=== PATIENT | male | born 1945 ===

== ENCOUNTER → 2019-12-26 11:53 | Outpatient (BNVA) | payer MEDICARE, SELFPAY | PROVIDERS: PCP Internal Medicine; Referring Provider Internal Medicine; Visit Provider Internal Medicine Cardiovascular Disease | DX: I48.19 Other persistent atrial fibrillation (principal); R06.02 Shortness of breath; I11.0 Hypertensive heart disease with heart failure; I50.9 Heart failure, unspecified; E66.9 Obesity, unspecified; Z68.43 Body mass index [BMI] 50.0-59.9, adult; G47.33 Obstructive sleep apnea (adult) (pediatric) | CPT/HCPCS: 93005; 99202 ==

== ENCOUNTER → 2020-05-25 13:21 | Outpatient (BNVA) | payer MEDICARE, SELFPAY | PROVIDERS: PCP Internal Medicine; Visit Provider Internal Medicine Cardiovascular Disease ==

== ENCOUNTER 2020-05-25 13:28 | Emergency (ER) | payer MEDICARE, MEDICAID, SELFPAY ==
--- NOTE | ~2020-05-25 | XR_ITS ---
EXAMINATION: LEFT HAND AND WRIST X-RAY CLINICAL INFORMATION: Pain post injury COMPARISON: None TECHNIQUE: 2 views of the left hand were performed. Exam is limited due to patient positioning. FINDINGS: Evaluation of the thumb is limited due to patient positioning. There is question of a nondisplaced ulnar styloid fracture. No other fracture is seen. Joint spaces are normal. Soft tissues are normal. XR/XR hand wrist LT IMPRESSION: Limited exam. Question nondisplaced fracture of the ulnar styloid.
--- NOTE | ~2020-05-25 | XR_ITS ---
EXAMINATION: XR HAND, LEFT CLINICAL INFORMATION: Question of underlying fracture COMPARISON: Radiographs earlier today TECHNIQUE: PA, lateral, and oblique views of the left hand. FINDINGS: Since the study earlier this afternoon there has been no interval change. On the current exam, I see no evidence of fracture ulnar styloid. XR/XR hand LT 2V IMPRESSION: I do not see a fracture of the ulnar styloid.
[2020-05-25 13:57] VITALS: BP 134/79; PULSE 59; RESP 18; TEMP 36.6; O2SAT 99; BMI 24.5
[2020-05-25 17:14] VITALS: RESP 16
[2020-05-25] MEDS: oxyCODONE HCl Immed Release 5 MG TABLET PO (17:50)
--- NOTE | 2020-05-25 19:12 | ED.EXTPRO ---
HPI - Extremity Problem General Chief complaint: Extremity Problem Stated complaint: Hand pain Time Seen by Provider: 05/25/20 14:25 Source: EMS Mode of arrival: EMS Limitations: no limitations History of Present Illness HPI Narrative: 75-year-old male presenting complaint of left hand pain he has a history of a CVA currently and Rehab states at month ago he had a CVA with left him with left-sided residual weakness and during the CVA event he fell onto the hand and has been having pain since. States the pain was reaggravated after his medical staff at the shelter attempted to help him and assist him out of bed. Pain is in the left hand. He was here for routine cardiology appointment outpatient basis and asked the EMS to bring him to emergency room for evaluation of the left hand. He otherwise denies any other complaints, specifically no chest pain, shortness of breath, recent illness, fever, shoulder pain or any other recent fall or injury. MD Complaint: extremity pain Onset (ago): month(s) (A month) Pain Consistency: intermittent Location: left Radiation: none Relieving factors: nothing Exacerbating factors: nothing Associated symptoms: denies other symptoms Related Data Home Medications Medication Instructions Recorded Confirmed amlodipine 10 mg tablet 10 mg PO DAILY 12/26/19 atenolol 100 mg tablet 100 mg PO DAILY 12/26/19 atorvastatin 40 mg tablet mg PO 12/26/19 cholecalciferol (vitamin D3) 25 25 mcg PO DAILY 12/26/19 mcg (1,000 unit) capsule fluoxetine 20 mg capsule 20 mg PO DAILY 12/26/19 furosemide 20 mg tablet 20 mg PO DAILY 12/26/19 mirtazapine 15 mg tablet 15 mg PO BEDTIME 12/26/19 omeprazole 20 mg capsule,delayed 20 mg PO DAILY 12/26/19 release Previous Rx's Medication Instructions Recorded rivaroxaban 20 mg tablet 20 mg PO QPM 30 Days #30 tab 12/26/19 Allergies Allergy/AdvReac Type Severity Reaction Status Date / Time No Known Allergies Allergy Verified 05/25/20 14:29 Review of Systems Review of Systems: Constitutional: No Weight loss, No Fever, No Chills, No Night Sweats, No Fatigue, No Malaise ENT/Mouth: No Hearing loss, No Ear Pain, No Nasal Congestion, No Sinus Pain, No Hoarseness, No sore throat, No Rhinorrhea, No Swallowing Difficulty Eyes: No Eye Pain, No Swelling, No Redness, No Foreign Body, No Discharge, No Vision Changes Cardiovascular: No Chest Pain, No SOB, No Dyspnea on Exertion, No Orthopnea, No Edema, No Palpitations Respiratory: No Cough, No Sputum, No Wheezing, No Smoke Exposure, No Dyspnea Gastrointestinal: No Nausea, No Vomiting, No Diarrhea, No Constipation, No abdominal Pain, No Hematochezia, No Melena Genitourinary: No Dysuria, No Urinary Frequency, No Hematuria, No Urinary Incontinence, No Urgency, No Flank Pain, No Urinary Flow Changes, No Hesitancy Musculoskeletal: No joint pain, No Myalgias, No Joint Swelling, hand pain is 0 per HPI Skin: No Skin Lesions, No rash Neuro: No Weakness, No Numbness, No Paresthesias, No Loss of Consciousness, No Dizziness, No Headache Psych: No Anxiety/Panic, No Depression, No SI/HI/AH/VH, No Social Issues Heme/Lymph: No Bruising, No Bleeding,No Lymphadenopathy Endocrine: No Polyuria, No Polydipsia, No Temperature Intolerance Yes all other systems are reviewed and are negative [facility] Past Medical History Medical History HTN (hypertension) Left atrial enlargement Obesity BETSY (obstructive sleep apnea) Persistent atrial fibrillation Social History Social History Alcohol intake: unknown Smoking Status: Former smoker Use of substances other than those prescribed or required for medical reasons: No Advance Directives: No Advance Directives Information Provided: Yes Physical Exam Vital Signs: Vital Signs: Last Vital Signs Temp 97.9 F 05/25/20 13:57 Pulse 59 05/25/20 13:57 Resp 16 05/25/20 17:14 BP 134/79 05/25/20 13:57 Pulse Ox 99 05/25/20 13:57 Body Mass Index 24.5 Reviewed Const: General: cooperative; No acute distress or intoxicated appearing Nutritional Appearance: average body habitus Orientation/consciousness: patient oriented x3 HENMT: Head: Yes normal to inspection Ears: hearing grossly normal bilaterally Eyes: General: appearance normal, both eyes and all related structures Visual Dominguez: normal visual dominguez by confrontation Neck: Neck: Yes normal visual inspection, No positive Brudzinski's sign, No positive Kernig's sign and No tender Thyroid: Thyroid normal Chest: Chest palpation & inspection: normal inspection of the chest Resp: Effort & Inspection: normal respiratory effort Auscultation: clear to auscultation bilaterally Cardio: Jugular venous distension: no JVD Rhythm: regular rhythm Heart sounds: S1 normal heart sound present and S2 normal heart sound present GI: Inspection: Yes normal to inspection Palpation (GI): Soft to palpation Percussion: Yes normal to percussion Auscultation: normal bowel sounds : General: Yes no CVA tenderness Back/Spine/Pelvis: Back: no CVA tenderness Skin: General skin exam: no rashes or lesions noted Neuro: Other: Baseline left-sided hemiparesis General: patient oriented x3 Extrem: Other: Points at the mid wrist/hand area as area of pain when he is touched. Otherwise no erythema, pulse is within normal limits. No obvious deformity or injury. General: Yes normal to inspection Course Course Course Narrative: Contusion versus strain type injury x-ray repeated given poor position without evidence of acute fracture. Will send back to the shelter with [facility] wrap. He is participating in PT. Discharge Plan Discharge Clinical Impression: Hand pain, left Patient Disposition: Xfer SNF Prescriptions: No Action furosemide 20 mg tablet 20 mg PO DAILY RF: 0 amlodipine 10 mg tablet 10 mg PO DAILY RF: 0 fluoxetine 20 mg capsule 20 mg PO DAILY RF: 0 mirtazapine 15 mg tablet 15 mg PO BEDTIME RF: 0 atorvastatin 40 mg tablet PO RF: 0 atenolol 100 mg tablet 100 mg PO DAILY RF: 0 omeprazole 20 mg capsule,delayed release(DR/EC) 20 mg PO DAILY RF: 0 cholecalciferol (vitamin D3) 25 mcg (1,000 unit) capsule 25 mcg PO DAILY RF: 0 Xarelto 20 mg tablet 20 mg PO QPM 30 Days Qty: 30 RF: 5
--- NOTE | 2020-05-25 19:52 | PC.NURSE ---
report given to fadumo glynn. no questions.
[2020-05-25 20:00] VITALS: BP 163/80; PULSE 80; RESP 18; TEMP 36.7; O2SAT 94
== END 2020-05-25 20:36 | disposition skilled nursing facility (03) ==
PROVIDERS: Emergency Provider Internal Medicine; PCP Internal Medicine
DX: M79.642 Pain in left hand (principal); I10 Essential (primary) hypertension; I48.19 Other persistent atrial fibrillation; Z86.73 Personal history of transient ischemic attack (TIA), and cerebral infarction without residual deficits
CPT/HCPCS: 73110; 73120; 73130; 99283; 99284

== ENCOUNTER 2022-11-28 08:20 | Outpatient (AMB) | payer MEDICARE, MEDICAID, SELFPAY ==
--- NOTE | 2022-11-28 08:50 | MHC.PC.OV ---
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 Transferring care from unknown . Medical records have not been requested and have not received. Belt Builder Required: Yes Belt Builder Language: Yi Information Interpreted: non-clinical & clinical Packaging Line Operator: Present Accompanied by: staff Allergies No Known Allergies Allergy (Verified 11/28/22 08:51) Tobacco use date assessed: 11/28/22 Fall risk assessment: No Falls in past year Last assessed Fall Risk: 11/28/22 Dental Screening Dental Screen Date: 11/28/22 Did you have a dental visit in the last 12 months?: No Did you have a dental problem in the last 6 months where you did not have access to dental care?: No Was dental information given to patient?: No HPI HPI Comments History of Present Illness Details 72-year-old male past history significant for hypertension, BETSY, persistent atrial fibrillation, heart failure, prostate cancer, right MCA ischemic stroke. Patient presents today as a new patient with [facility]. Patient presents today with training program developer Tremaine. dba manager from [facility] requesting referral to reestablish care with Neurology, for history of seizures and history of right MCA stroke, cardiology for history of atrial fibrillation and heart failure, podiatry referral for foot exam, gastroenterology for ongoing right quadrant abdominal pain. And requesting order for new sleep study. Reports patient does use his CPAP for greater than 4 hours nightly with good effect. Patient recently moved to [facility] in [place] from long-term in [place]. Requesting refills on all of his medications be sent to [facility]. Patient fidel lift to wheelchair. [facility] currently [facility] at [facility]. Patient's doctor assistant was utilized for assessment portion of this exam. Patient reports 3 months of pain with urination, urinalysis ordered to further evaluate. [facility] Medical History (Updated 11/28/22 @ 09:43 by ZENOBIA Mohr) Abdominal pain History of stroke Prostate cancer BETSY (obstructive sleep apnea) Obesity HTN (hypertension) Left atrial enlargement Persistent atrial fibrillation Social History Housing: House Alcohol intake: never Patient Tobacco Use Status: Never used Tobacco e-Cigarette/Vaping Use: Never Used Second Hand Smoke Exposure: No service: No Current occupational status: disabled Cognitive needs: Yes (Wheelchair) Hearing needs: No Vision needs: Yes (glasses) Questionnaire PHQ-9 Over the last 2 weeks, how often have you been bothered by any of the following problems? 1. Little interest or pleasure in doing things: not at all 2. Feeling down, depressed, or hopeless: not at all 3. Trouble falling or staying asleep, or sleeping too much: not at all 4. Feeling tired or having little energy: not at all 5. Poor appetite or overeating: not at all 6. Feeling bad about yourself - or that you are a failure or have let yourself or your family down: not at all 7. Trouble concentrating on things, such as reading the newspaper or watching television: not at all 8. Moving or speaking so slowly that other people could have noticed. Or the opposite - being so fidgety or restless that you have been moving around a lot more than usual: not at all 9. Thoughts that you would be better off or of hurting yourself in some way: not at all Total score: 0 Depression Screening Interpretation: Negative Depression Screening Done: Yes Source: Developed by Drs. Sammy Orozco, Jerri Holman, Lee Ruggiero and colleagues, with an educational allison from [employer]. Thrive Questionnaire Date Thrive assessed: 11/28/22 I am a: Patient What is your living situation today?: I have a steady place to live Within the past 12 months, did the food you bought not last and you didn't have the money to get more?: Never true Within the past 12 months, did you worry whether your food would run out before you got money to buy more?: Never true Do you have trouble paying for medicines?: No Do you have trouble getting transportation to medical appointments?: No Do you have trouble paying your heating and electricity bill?: No Do you have trouble taking care of your child, family member or friend?: No Do you have trouble with day-to-day activities such as bathing, preparing meals, shopping, managing finances, etc.?: No Are you currently unemployed and looking for a job?: No Are you interested in more education?: No Currently or been in a relationship where the following occur: no concerns reported AUDIT C Alcohol Use Questionnaire (AUDIT-C) 1. How often do you have a drink containing alcohol?: Never Total Score: 0 JUMA-7 AMB Questionnaire JUMA-7 Date JUMA - 7 assessed: 11/28/22 Feeling nervous, anxious, or on edge: 0 = Not at all Not being able to stop or control worryin = Not at all Worrying too much about different things: 0 = Not at all Trouble relaxin = Not at all Being so restless that it is hard to sit still: 0 = Not at all Becoming easily annoyed or irritable: 0 = Not at all Feeling afraid as if something awful might happen: 0 = Not at all Total JUMA-7 score (0-4 normal; 5-9 mild; 10-14 moderate; 15-21 severe): 0 Source: Developed by Drs. Sammy Orozco, Jerri Holman, Lee Ruggiero and colleagues, with an educational allison from [employer]. Review of Systems Const Denies chills, Denies fatigue, Denies fever(s) and Denies poor appetite Eyes Denies no additional complaints ENT Reports Normal hearing present Card Denies chest pain, Denies syncope, Denies rapid heart rate and Denies dyspnea Resp Denies cough and Denies dyspnea GI Denies change in stool character, Denies constipation, Denies diarrhea, Denies nausea and Denies vomiting Denies dysuria, Denies urinary frequency and Denies urinary urgency Neuro Reports Normal hearing present, Denies confusion and Denies syncope Psych Denies confusion Endo Denies fatigue Physical exam (Primary Care) Vital Signs: Last Vital Signs Pulse 80 11/28/22 09:12 BP 124/86 11/28/22 09:12 Pulse Ox 96 11/28/22 09:12 Oxygen Delivery Method Room Air 11/28/22 09:12 Tobacco/Smoking Status: Tobacco use Status Tobacco use date assessed 11/28/22 11/28/22 08:56 Patient Tobacco Use Status Never used Tobacco 11/28/22 08:56 e-Cigarette/Vaping Use Never Used 11/28/22 08:56 PHQ-9: PHQ-9 Score PHQ-9: Total score 0 11/28/22 11:00 Depression Screening Interpretation: Negative Thrive Assessment: Date of Thrive Assessment Date Thrive assessed 11/28/22 11/28/22 08:56 Currently or been in a relationship where the following occur: no concerns reported Const General: No confusion Orientation/consciousness: No confusion Neuro General: No confusion Cranial nerves: Yes Normal hearing present Assessment and Plan Assessment & Plan (1) BETSY (obstructive sleep apnea): Code(s): G47.33 - Obstructive sleep apnea (adult) (pediatric) Plan: Sleep study ordered. Continue to use CPAP for greater than 4 hours a night with good effect. Referral entered neuro/sleep to establish care. (2) Persistent atrial fibrillation: Code(s): I48.19 - Other persistent atrial fibrillation Plan: Continue on Eliquis for anticoagulation. Referral entered to reestablish care with Cardiology (3) Heart failure: Code(s): I50.9 - Heart failure, unspecified Plan: Referral entered to reestablish care with Cardiology. (4) Seizure: Code(s): R56.9 - Unspecified convulsions Plan: Continue on current medications. Patient training program developer denies any seizure activity since [facility] to a [facility] Plan Follow-up in 3 months for complete physical exam Orders: Orders Comprehensive [facility]. Panel Fast Today Z13.1 - Encounter for screening for diabetes mellitus Complete Blood Count Auto Diff Today Z13.0 - Encounter for screening for diseases of the blood and blood-forming organs and certain disorders involving the immune mechanism UA CC w/rflx Micro + Cult Today R30.0 - Dysuria RT PSG in-lab sleep study Today G47.33 - Obstructive sleep apnea (adult) (pediatric) Lipid Panel Today Z13.220 - Encounter for screening for lipoid disorders TSH reflex Free T4 Today Z13.29 - Encounter for screening for other suspected endocrine disorder Hemoglobin A1c Today Z13.1 - Encounter for screening for diabetes mellitus Referrals Neurology Referral R56.9 - Unspecified convulsions Podiatry Referral Z00.00 - Encounter for general adult medical examination without abnormal findings Cardiology Referral I48.19 - Other persistent atrial fibrillation, I50.9 - Heart failure, unspecified Gastroenterology Referral R10.9 - Unspecified abdominal pain Medications: New atenolol 50 mg (1/2 x 100 mg) PO DAILY 30 tabs 3RF duloxetine (Cymbalta) 60 mg PO DAILY 30 caps 3RF furosemide 40 mg (2 x 20 mg) PO DAILY 30 tabs 3RF simethicone (Gas Relief (simethicone)) 80 mg PO TID PRN 90 tabs 2RF abdominal distention trazodone 50 mg PO BID 60 tabs 3RF trazodone 25 mg (1/2 x 50 mg) PO .every 8hr PRN 30 tabs 0RF sleep magnesium hydroxide (Milk Of Magnesia Concentrated) 30 mL PO DAILY PRN 1,000 mL 0RF constipation acetaminophen ER (Tylenol 8 Hour) 650 mg PO Q12H 30 tabs 3RF amlodipine (Norvasc) 5 mg PO DAILY 30 tabs 3RF apixaban 5 mg PO BID 60 tabs 3RF buspirone 10 mg PO BID 60 tabs 3RF cholecalciferol (vitamin D3) 25 mcg PO DAILY 30 caps 3RF duloxetine (Cymbalta) 30 mg PO DAILY 30 caps 3RF sennosides (senna) 17.2 mg (2 x 8.6 mg) PO BEDTIME 30 caps 3RF levetiracetam ER (Keppra XR) 1,000 mg (2 x 500 mg) PO DAILY 30 tabs 3RF R56.9 - Unspecified convulsions gabapentin 300 mg PO DAILY 30 caps 3RF gabapentin 100 mg PO BID 60 caps 3RF Changed From atorvastatin PO To atorvastatin 40 mg PO BEDTIME 30 tabs 3RF Discontinued rivaroxaban (Xarelto) must administer with evening meal Discontinued Reason: Patient no longer taking 20 mg PO QPM 30 days 30 tabs 5RF Coding Level of Care Code New Pt Level 4 (16109) Diagnoses BETSY (obstructive sleep apnea) G47.33 Persistent atrial fibrillation I48.19 Heart failure I50.9 Seizure R56.9
[2022-11-28 09:12] VITALS: BP 124/86; PULSE 80; O2SAT 96
== END 2022-11-28 09:42 | disposition home or self-care (01) ==
PROVIDERS: PCP Nurse Practitioner Family; Visit Provider Nurse Practitioner Family
DX: G47.33 Obstructive sleep apnea (adult) (pediatric) (principal); I48.19 Other persistent atrial fibrillation; I50.9 Heart failure, unspecified; R56.9 Unspecified convulsions
CPT/HCPCS: 99204

== ENCOUNTER 2022-12-09 10:29 | Outpatient (AMB) | payer MEDICARE, MEDICAID, SELFPAY ==
[2022-12-09 10:35] VITALS: BP 130/76; PULSE 65; O2SAT 96
--- NOTE | 2022-12-09 10:35 | MHC.PC.OV ---
Vital Signs 12/09/22 10:35 Height 5 ft 11 in BP 130/76 Blood Pressure Location Lt brachial Position Sitting Pulse 65 Pulse Source Pulse Oximeter Pulse Oximetry (%) 96 Oxygen Delivery Method Room Air Intake Visit Reasons: [facility] 12/02/22 Chest Pain Ear Mold Laboratory Technician: Present Allergies No Known Allergies Allergy (Verified 12/09/22 11:14) Medication List - Last Reconciled 12/09/22 by ZENOBIA Mohr acetaminophen ER (Tylenol 8 Hour) 650 mg PO Q12H amlodipine (Norvasc) 5 mg PO DAILY apixaban 5 mg PO BID atenolol 50 mg (1/2 x 100 mg) PO DAILY atorvastatin 40 mg PO BEDTIME buspirone 10 mg PO BID cholecalciferol (vitamin D3) 25 mcg PO DAILY duloxetine (Cymbalta) 60 mg PO DAILY duloxetine (Cymbalta) 30 mg PO DAILY furosemide 40 mg (2 x 20 mg) PO DAILY gabapentin 300 mg PO DAILY gabapentin 100 mg PO BID levetiracetam ER (Keppra XR) 1,000 mg (2 x 500 mg) PO DAILY magnesium hydroxide (Milk Of Magnesia Concentrated) 30 mL PO DAILY PRN sennosides (senna) 17.2 mg (2 x 8.6 mg) PO BEDTIME simethicone (Gas Relief (simethicone)) 80 mg PO TID PRN trazodone 50 mg PO BID trazodone 25 mg (1/2 x 50 mg) PO .every 8hr PRN Tobacco use date assessed: 11/28/22 Fall risk assessment: No Falls in past year Last assessed Fall Risk: 12/09/22 Dental Screening Dental Screen Date: 12/09/22 Did you have a dental visit in the last 12 months?: Yes Did you have a dental problem in the last 6 months where you did not have access to dental care?: No Was dental information given to patient?: Patient has dentist HPI HPI Comments History of Present Illness Details 72-year-old [place]-speaking male past history significant for hypertension, BETSY, persistent atrial fibrillation, heart failure, prostate cancer, right MCA ischemic stroke. Patient presents today with ER visit to [facility]. Records unavailable during this appointment. 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 intermediate staff report work up was negative and patient returned to the house. Patient denies any chest pain, palpitations, shortness of breath or syncope. Records have been requested. No acute concerns at this time. intermediate staff reminded to get previously ordered blood work completed. [facility] Medical History Abdominal pain History of stroke Prostate cancer BETSY (obstructive sleep apnea) Obesity HTN (hypertension) Left atrial enlargement Persistent atrial fibrillation Social History Housing: House Alcohol intake: never Patient Tobacco Use Status: Never used Tobacco e-Cigarette/Vaping Use: Never Used Second Hand Smoke Exposure: No service: No Current occupational status: disabled Cognitive needs: Yes (Wheelchair) Hearing needs: No Vision needs: Yes (glasses) Questionnaire PHQ-9 Over the last 2 weeks, how often have you been bothered by any of the following problems? 1. Little interest or pleasure in doing things: not at all 2. Feeling down, depressed, or hopeless: not at all 3. Trouble falling or staying asleep, or sleeping too much: not at all 4. Feeling tired or having little energy: not at all 5. Poor appetite or overeating: not at all 6. Feeling bad about yourself - or that you are a failure or have let yourself or your family down: not at all 7. Trouble concentrating on things, such as reading the newspaper or watching television: not at all 8. Moving or speaking so slowly that other people could have noticed. Or the opposite - being so fidgety or restless that you have been moving around a lot more than usual: not at all 9. Thoughts that you would be better off or of hurting yourself in some way: not at all Total score: 0 Source: Developed by Drs. Sammy Orozco, Jerri Hloman, Lee Ruggiero and colleagues, with an educational allison from [employer]. Thrive Questionnaire Date Thrive assessed: 11/28/22 AUDIT C Alcohol Use Questionnaire (AUDIT-C) 1. How often do you have a drink containing alcohol?: Never Total Score: 0 JUMA-7 AMB Questionnaire JUMA-7 Date JUMA - 7 assessed: 11/28/22 Source: Developed by Drs. Sammy Orozco, Jerri Holman, Lee Ruggiero and colleagues, with an educational allison from [employer]. Review of Systems Const Denies chills, Denies fatigue, Denies fever(s) and Denies poor appetite Eyes Denies no additional complaints Card Denies chest pain, Denies syncope, Denies rapid heart rate and Denies dyspnea Resp Denies cough and Denies dyspnea GI Denies change in stool character, Denies constipation, Denies diarrhea, Denies nausea and Denies vomiting Denies dysuria, Denies urinary frequency and Denies urinary urgency Neuro Denies syncope Endo Denies fatigue Physical exam (Primary Care) Vital Signs: Last Vital Signs Pulse 65 12/09/22 10:35 BP 130/76 12/09/22 10:35 Pulse Ox 96 12/09/22 10:35 Oxygen Delivery Method Room Air 12/09/22 10:35 Tobacco/Smoking Status: Tobacco use Status Tobacco use date assessed 11/28/22 12/09/22 10:37 Patient Tobacco Use Status Never used Tobacco 12/09/22 10:37 e-Cigarette/Vaping Use Never Used 12/09/22 10:37 PHQ-9: PHQ-9 Score PHQ-9: Total score 0 12/09/22 11:15 Thrive Assessment: Date of Thrive Assessment Date Thrive assessed 11/28/22 12/09/22 10:37 Const General: cooperative and no acute distress Orientation/consciousness: patient oriented x3 HENMT Head: Yes normocephalic and Yes atraumatic Eyes Conjunctivae: conjunctivae normal Chest Chest palpation & inspection: normal inspection of the chest Resp Effort & Inspection: normal respiratory effort Auscultation: clear to auscultation bilaterally, no crackles, no rhonchi and no wheezes Cardio Rate: regular rate Rhythm: regular rhythm Heart sounds: S1 normal heart sound present and S2 normal heart sound present GI Inspection: Yes normal to inspection Neuro General: patient oriented x3 Extrem General: No edema Assessment and Plan Assessment & Plan (1) HTN (hypertension): Code(s): I10 - Essential (primary) hypertension (2) BETSY (obstructive sleep apnea): Code(s): G47.33 - Obstructive sleep apnea (adult) (pediatric) Plan: Sleep study ordered. Continue to use CPAP for greater than 4 hours a night with good effect. Referral entered neuro/sleep to establish care. (3) Persistent atrial fibrillation: Code(s): I48.19 - Other persistent atrial fibrillation Plan: Continue on Eliquis for anticoagulation. Referral previously entered to reestablish care with Cardiology (4) Heart failure: Code(s): I50.9 - Heart failure, unspecified Plan: Referral previously entered to reestablish care with Cardiology. (5) Seizure: Code(s): R56.9 - Unspecified convulsions Plan: Continue on current medications. 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 Referral previously placed to neurology. Plan Keep scheduled annual exam. Coding Level of Care Code Est Pt Level 4 (21941) Diagnoses HTN (hypertension) I10 BETSY (obstructive sleep apnea) G47.33 Persistent atrial fibrillation I48.19 Heart failure I50.9 Seizure R56.9
== END 2022-12-09 11:22 | disposition home or self-care (01) ==
PROVIDERS: PCP Nurse Practitioner Family; Visit Provider Nurse Practitioner Family
DX: I11.0 Hypertensive heart disease with heart failure (principal); I50.9 Heart failure, unspecified; I48.19 Other persistent atrial fibrillation; R56.9 Unspecified convulsions
CPT/HCPCS: 99214

== ENCOUNTER 2022-12-12 09:26 | Outpatient (REF) | payer MEDICARE, MEDICAID, SELFPAY ==
[2022-12-12 10:07] LABS: MANUAL DIFF FLAG NO
[2022-12-12 10:49] LABS: Basophils Percent Auto 0.2 % (0-2); Eosinophils Absolute Auto 0.1 X10*3/uL (0.0-0.4); Eosinophils Percent Auto 1.2 % (0-4); Hematocrit 48.2 % (42.0-52.0); Imm Gran Abs Auto 0.01 X10*3/uL (0.00-0.03); Imm Gran Pct Auto 0.2 % (0.0-0.4); Lymphocytes Absolute Auto 0.6 X10*3/uL (1.2-4.9); Mean Corpuscular HGB Conc 33.2 g/dl (31.0-36.0); Mean Corpuscular Hemoglobin 32.8 pg (27.0-33.0); Mean Corpuscular Volume 98.8 fL (80.0-98.0); Mean Platelet Volume 10.6 fL (9.4-12.4); Monocytes Absolute Auto 0.4 X10*3/uL (0.1-1.2); Monocytes Percent Auto 8.4 % (2-11); Neutrophils Absolute Auto 3.2 x10*3/uL (2.0-8.3); Platelet Count 189 X10*3/uL (160-400); Red Blood Count 4.88 X10*6/uL (4.60-5.80); Red Cell Distribution Width 12.4 % (11.0-16.0); White Blood Count 4.3 X10*3/uL (4.8-10.8)
[2022-12-12 11:18] LABS: Estimated Average Glucose 105 mg/dL; Hemoglobin A1c % 5.3 % (<6.0)
[2022-12-12 11:24] LABS: Alanine Aminotransferase 39 U/L (0-40); Albumin Level 3.8 g/dL (3.5-5.0); Alkaline Phosphatase 100 U/L (39-117); Anion Gap 14 (12-20); Aspartate Amino Transferase 28 U/L (5-37); Bilirubin Total 0.8 mg/dL (0.0-1.0); Blood Urea Nitrogen 12 mg/dL (9-16); Calcium 9.3 mg/dL (8.4-10.2); Carbon Dioxide 31 mmol/L (22-29); Chloride 103 mmol/L (96-108); Cholesterol 157 mg/dL (<200); Estimated Glomerular Filt Rate > 60; Glucose Fasting 89 mg/dL (60-99); HDL Cholesterol 44 mg/dL (>40); LDL Cholesterol Calculated 90 mg/dL (<100); Potassium 3.6 mmol/L (3.3-5.1); Sodium 144 mmol/L (135-145); Total Protein 7.1 g/dL (6.5-8.0); Triglycerides 115 mg/dL (<150)
[2022-12-12 11:57] LABS: TSH reflex Free T4 0.52 uIU/mL (0.32-4.0)
== END 2022-12-12 09:27 | disposition home or self-care (01) ==
LOC: HO.LAB 09:26
PROVIDERS: PCP Nurse Practitioner Family; Visit Provider Nurse Practitioner Family
DX: R30.0 Dysuria (principal); Z13.1 Encounter for screening for diabetes mellitus; Z13.0 Encounter for screening for diseases of the blood and blood-forming organs and certain disorders involving the immune mechanism; Z13.29 Encounter for screening for other suspected endocrine disorder; Z13.220 Encounter for screening for lipoid disorders; E78.5 Hyperlipidemia, unspecified; E66.9 Obesity, unspecified
CPT/HCPCS: 36415; 80053; 80061; 83036; 84443; 85025

== ENCOUNTER → 2023-01-04 01:31 | Outpatient (BNV) | payer MEDICARE, MEDICAID, SELFPAY | PROVIDERS: PCP Nurse Practitioner Family; Visit Provider Psychiatry & Neurology Neurology | DX: R06.83 Snoring (principal) | CPT/HCPCS: 95810 ==

== ENCOUNTER → 2023-01-04 19:30 | Outpatient (REF) | payer MEDICARE, MEDICAID, SELFPAY | LOC: HO.SL 19:30 | PROVIDERS: PCP Nurse Practitioner Family; Visit Provider Nurse Practitioner Family | DX: G47.33 Obstructive sleep apnea (adult) (pediatric) (principal) | CPT/HCPCS: 95810 ==

== ENCOUNTER 2023-02-08 10:20 | Outpatient (AMB) | payer MEDICARE, MEDICAID, SELFPAY ==
--- NOTE | 2023-02-08 10:21 | A.OFFVIS_ITS ---
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 Allergies No Known Allergies Allergy (Verified 02/08/23 10:22) HPI HPI Comments History of Present Illness Details 78 y/o male patient presents with Shelter staff for new in-person visit to establish care for seizure. Pt is not a good historian. Pt can't give information about hx of seizure. The Shelter staff also does not know about patient's seizure history. Pt is on Keppra ER 1000 mg daily and gabapentin 300 mg TID. Per Shelter staff, he has worked with the patient about 6 months, and has not seen any seizure activities. Pt has hx of BETSY, persistent atrial fibrillation, heart failure, prostate cancer, right MCA ischemic stroke. Pt had PSG sleep study done recently. The PSG sleep study result was significant for mild snoring. There was no evidence of sleep apnea. The AHI was less than 1 and oxygen sherif was 71%. However, per tech note, there was oximeter error. The oximeter had to be replaced several times due to patient circulation in his hands. Probe was tried in both hands and also his toes. [facility] Medical History (Updated 02/08/23 @ 10:37 by Lory Lawson CMA) Lipoma of arm Abdominal pain History of stroke Prostate cancer BETSY (obstructive sleep apnea) Obesity HTN (hypertension) Left atrial enlargement Persistent atrial fibrillation Social History Housing: House Alcohol intake: never Patient Tobacco Use Status: Never used Tobacco e-Cigarette/Vaping Use: Never Used Second Hand Smoke Exposure: No service: No Current occupational status: disabled Cognitive needs: Yes (Wheelchair) Hearing needs: No Vision needs: Yes (glasses) Review of Systems Const All systems reviewed & are unremarkable except as noted in HPI and below Physical Exam Const General: cooperative Nutritional Appearance: obese Limitations: wheelchair Neck Neck: Yes supple Resp Effort & Inspection: normal respiratory effort and able to speak in complete sentences Neuro Other: limited left arm movement. No left leg movement. General: Unable to assess gait Cranial nerves: Yes CN's II-XII intact bilaterally Cognition (Neuro): normal cognition Gait exam (Neuro): Unable to assess gait Psych Appearance: grossly normal Mental Status: mental status grossly normal Assessment & Plan Assessment & Plan (1) Seizure: Code(s): R56.9 - Unspecified convulsions Plan Advised patient to have EEG for baseline information. Continue to take keppra 1000 mg ER daily and gabapentin 300 mg TID. Orders: Orders EEG ambulatory 02/08/23 R56.9 - Unspecified convulsions Coding Level of Care Code New Pt Level 3 (63402) Diagnoses Seizure R56.9
== END 2023-02-08 11:49 | disposition home or self-care (01) ==
PROVIDERS: PCP Nurse Practitioner Family; Visit Provider Nurse Practitioner Family
DX: R56.9 Unspecified convulsions (principal)
CPT/HCPCS: 99203

== ENCOUNTER → 2023-02-08 10:20 | Outpatient (BNVA) | payer MEDICARE, MEDICAID, SELFPAY | PROVIDERS: PCP Nurse Practitioner Family; Visit Provider Nurse Practitioner Family | DX: R56.9 Unspecified convulsions (principal) | CPT/HCPCS: 99202 ==

== ENCOUNTER 2023-02-27 14:56 | Outpatient (AMB) | payer MEDICARE, MEDICAID, SELFPAY ==
--- NOTE | 2023-02-27 15:01 | A.OFFPC_ITS ---
Vital Signs 02/27/23 15:04 Height 5 ft 11 in BMI Reason not done Patient refused/unable BP 132/70 Blood Pressure Location Rt brachial Position Sitting Pulse 64 Pulse Source Pulse Oximeter Pulse Oximetry (%) 94 Oxygen Delivery Method Room Air Intake Visit Reasons: ED [facility] 02/02 fall Intake Note: Patient is here to follow-up after a visit the emergency department at [facility] on 02/02/23 Traveling Auditor Required: Yes Traveling Auditor Language: Dumpman Name: Maurilio ([id number]) Information Interpreted: non-clinical & clinical Spray Mixer: Not Required per policy Accompanied by: Self / Same As Patient Allergies No Known Allergies Allergy (Verified 02/27/23 17:18) Medication List - Last Reconciled 02/27/23 by Joe Segura MD acetaminophen ER (Tylenol 8 Hour) 650 mg PO Q12H amlodipine (Norvasc) 5 mg PO DAILY apixaban 5 mg PO BID atenolol 50 mg (1/2 x 100 mg) PO DAILY atorvastatin 40 mg PO BEDTIME buspirone 10 mg PO BID cholecalciferol (vitamin D3) 25 mcg PO DAILY duloxetine (Cymbalta) 60 mg PO DAILY duloxetine (Cymbalta) 30 mg PO DAILY furosemide 40 mg (2 x 20 mg) PO DAILY gabapentin 300 mg PO TID levetiracetam ER (Keppra XR) 1,000 mg (2 x 500 mg) PO DAILY magnesium hydroxide (Milk Of Magnesia Concentrated) 30 mL PO DAILY PRN polyethylene glycol 3350 (Miralax) 17 grams PO DAILY sennosides (senna) 17.2 mg (2 x 8.6 mg) PO BEDTIME simethicone (Gas Relief (simethicone)) 80 mg PO TID PRN trazodone 50 mg PO BID trazodone 25 mg (1/2 x 50 mg) PO .every 8hr PRN Tobacco use date assessed: 02/27/23 Fall risk assessment: 1 Fall in past year Last assessed Fall Risk: 02/27/23 Dental Screening Dental Screen Date: 02/27/23 Did you have a dental visit in the last 12 months?: Yes Did you have a dental problem in the last 6 months where you did not have access to dental care?: No Was dental information given to patient?: Patient has dentist HPI ED [facility] 02/02 fall HPI Details 78-year-old male presents to the office to review his medical complaints. He will be transferring to my care as his primary provider has left the office. Patient is wheelchair bound and comes from a intermediate. He is dependent for transfer and all care. He is able to eat independently. However he is incontinent to urine and feces. He also needs complete assistance in moving from the chair to the bed. He has obstructive sleep apnea and is on CPAP. [facility] Medical History (Updated 02/08/23 @ 10:37 by Lory Lawson CMA) Lipoma of arm Abdominal pain History of stroke Prostate cancer BETSY (obstructive sleep apnea) Obesity HTN (hypertension) Left atrial enlargement Persistent atrial fibrillation Surgical History (Updated 02/27/23 @ 15:11 by ÓSCAR Christopher) History of dental surgery Social History Housing: House Alcohol intake: never Patient Tobacco Use Status: Never used Tobacco e-Cigarette/Vaping Use: Never Used Second Hand Smoke Exposure: No service: No Current occupational status: disabled Cognitive needs: Yes (Wheelchair) Hearing needs: No Vision needs: Yes (glasses) Questionnaire PHQ-9 Over the last 2 weeks, how often have you been bothered by any of the following problems? 1. Little interest or pleasure in doing things: not at all 2. Feeling down, depressed, or hopeless: not at all 3. Trouble falling or staying asleep, or sleeping too much: not at all 4. Feeling tired or having little energy: not at all 5. Poor appetite or overeating: not at all 6. Feeling bad about yourself - or that you are a failure or have let yourself or your family down: not at all 7. Trouble concentrating on things, such as reading the newspaper or watching television: not at all 8. Moving or speaking so slowly that other people could have noticed. Or the opposite - being so fidgety or restless that you have been moving around a lot more than usual: not at all 9. Thoughts that you would be better off or of hurting yourself in some way: not at all Total score: 0 Depression Screening Interpretation: Negative Depression Screening Done: Yes Source: Developed by Jeremias Bellamyet [employer], Lee Ruggiero and colleagues, with an educational allison from [employer]. Thrive Questionnaire Date Thrive assessed: 02/27/23 I am a: Patient What is your living situation today?: I have a steady place to live Within the past 12 months, did the food you bought not last and you didn't have the money to get more?: Never true Within the past 12 months, did you worry whether your food would run out before you got money to buy more?: Never true Do you have trouble paying for medicines?: No Do you have trouble getting transportation to medical appointments?: No Do you have trouble paying your heating and electricity bill?: No Do you have trouble taking care of your child, family member or friend?: No Do you have trouble with day-to-day activities such as bathing, preparing meals, shopping, managing finances, etc.?: No Are you currently unemployed and looking for a job?: No Are you interested in more education?: No Currently or been in a relationship where the following occur: no concerns reported AUDIT C Alcohol Use Questionnaire (AUDIT-C) 1. How often do you have a drink containing alcohol?: Never Total Score: 0 JUMA-7 AMB Questionnaire JUMA-7 Date JUMA - 7 assessed: 02/27/23 Feeling nervous, anxious, or on edge: 0 = Not at all Not being able to stop or control worryin = Not at all Worrying too much about different things: 0 = Not at all Trouble relaxin = Not at all Being so restless that it is hard to sit still: 0 = Not at all Becoming easily annoyed or irritable: 0 = Not at all Feeling afraid as if something awful might happen: 0 = Not at all Total JUMA-7 score (0-4 normal; 5-9 mild; 10-14 moderate; 15-21 severe): 0 Source: Developed by Drs. Sammy Orozco, Jerri Holman, Lee Ruggiero and colleagues, with an educational allison from [employer]. Physical exam (Primary Care) Vital Signs: Last Vital Signs Pulse 64 02/27/23 15:04 BP 132/70 02/27/23 15:04 Pulse Ox 94 02/27/23 15:04 Oxygen Delivery Method Room Air 02/27/23 15:04 Tobacco/Smoking Status: Tobacco use Status Tobacco use date assessed 02/27/23 02/27/23 15:08 Patient Tobacco Use Status Never used Tobacco 02/27/23 15:08 e-Cigarette/Vaping Use Never Used 02/27/23 15:08 PHQ-9: PHQ-9 Score PHQ-9: Total score 0 02/27/23 15:08 Depression Screening Interpretation: Negative Thrive Assessment: Date of Thrive Assessment Date Thrive assessed 02/27/23 02/27/23 15:08 Currently or been in a relationship where the following occur: no concerns reported Const Other: Prefers to be silent and does not answer any questions. According to the intermediatesalesperson trailers and motor homes, this is his baseline state. Resp Effort & Inspection: normal respiratory effort Auscultation: clear to auscultation bilaterally Cardio Jugular venous distension: no JVD Palpation: normal PMI Rate: regular rate Rhythm: regular rhythm Heart sounds: S1 normal heart sound present and S2 normal heart sound present Assessment and Plan Assessment & Plan (1) Seizure: Code(s): R56.9 - Unspecified convulsions Plan: Lamictal prescription was called in. Other medications reviewed. Medications: Refilled levetiracetam ER (Keppra XR) 1,000 mg (2 x 500 mg) PO DAILY 30 tabs 3RF R56.9 - Unspecified convulsions Coding Level of Care Code Est Pt Level 3 (69816) Diagnoses Seizure R56.9
[2023-02-27 15:04] VITALS: BP 132/70; PULSE 64; O2SAT 94
== END 2023-02-27 15:45 | disposition home or self-care (01) ==
PROVIDERS: PCP Nurse Practitioner Family; Visit Provider Internal Medicine
DX: R56.9 Unspecified convulsions (principal)
CPT/HCPCS: 99213

== ENCOUNTER 2023-04-26 09:19 | Outpatient (AMB) | payer MEDICARE, MEDICAID, SELFPAY ==
--- NOTE | 2023-04-26 09:21 | MHC.PC.OV ---
Vital Signs 04/26/23 09:23 Height 5 ft 11 in BMI Reason not done Patient refused/unable BP 144/68 H Blood Pressure Location Rt brachial Position Sitting Pulse 88 Pulse Source Pulse Oximeter Temp Source Skin Pulse Oximetry (%) 97 Oxygen Delivery Method Room Air Intake Visit Reasons: [facility] 04/14 - 04/17 Intake Note: Patient is here for hospital discharge follow up. Patient was discharged from [facility] on 04/14-04/17 Allergies No Known Allergies Allergy (Verified 04/26/23 09:23) Medication List - Last Reconciled 04/26/23 by DM Peter acetaminophen (Tylenol) 650 mg (2 x 325 mg) PO BID-QID PRN amlodipine (Norvasc) 5 mg PO DAILY apixaban 5 mg PO BID atenolol 50 mg (1/2 x 100 mg) PO DAILY atorvastatin 40 mg PO BEDTIME buspirone 10 mg PO BID cholecalciferol (vitamin D3) 25 mcg PO DAILY cholecalciferol (vitamin D3) 25 mcg PO DAILY dapagliflozin propanediol 10 mg PO QAM dextromethorphan-guaifenesin 5-100 mg/5 mL (Robitussin Cough-Chest Congestion DM) 10 mL PO Q4-8H PRN duloxetine (Cymbalta) 60 mg PO BID furosemide 40 mg (2 x 20 mg) PO DAILY gabapentin 300 mg PO TID levetiracetam ER (Keppra XR) 1,000 mg (2 x 500 mg) PO DAILY loperamide 2 mg PO Q8H PRN 7 days magnesium hydroxide (Milk Of Magnesia Concentrated) 30 mL PO DAILY PRN polyethylene glycol 3350 (Miralax) 17 grams PO DAILY sacubitril-valsartan 24-26 mg (Entresto) 1 tab PO BID sennosides (senna) 17.2 mg (2 x 8.6 mg) PO BEDTIME simethicone (Gas Relief (simethicone)) 80 mg PO TIDWMEAL trazodone 25 mg (1/2 x 50 mg) PO .every 8hr PRN trazodone 50 mg PO BID Tobacco use date assessed: 04/26/23 Fall risk assessment: No Falls in past year Last assessed Fall Risk: 04/26/23 HPI TCM TCM Information Date of Discharge 04/17/23 Discharged From Other ([facility]) Interactive Contact Date (Reference documentation from this date) 04/26/23 HPI Comments History of Present Illness Details 78-year-old male with history of hypertension, hyperlipidemia, CKD stage 3, paroxysmal atrial fibrillation, heart failure with reduced ejection fraction, BETSY on CPAP, 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 Discharge medications have been reviewed and reconciled. The patient was admitted to [facility] from 04/14-04/17 due to acute hypercarbic respiratory failure on BiPAP with mild respiratory acidosis. PH 7.29, pCO2 70, bicarbonate 33. Renal function and electrolyte levels normal. He was also noted to be encephalopathic secondary to hypercapnia. He was treated with BiPAP with return to baseline mentation. He was continued on CPAP nightly. The reason he presented to the ED was due to left hip pain. X-ray of the left hip was without fracture but did show discrete focal lesions with differential to include renal osteodystrophy, metastatic disease, hematology disorders such as sickle cell disease. Patient was discharged back to retirement. manager agency reports RN at [facility] is recommending pt be seen by specialists for chronic medical conditions including neurology, pulmonology, sleep medicine, and cardiology. Danish interpretor Rajiv, [id number], used in discussion with pt. He is reporting he woke up with a sore throat this morning that is no longer present. Reports a chronic cough but no change in quality or severity. No fevers, chills, congestion, abd pain, n/v, sob, chest pain. No one sick at retirement per staff. Reports compliance with cpap. [facility] Medical History (Updated 04/27/23 @ 17:02 by DM Peter) Chronic hypercapnic respiratory failure Cognitive impairment Seizure Lipoma of arm Abdominal pain History of stroke Prostate cancer BETSY (obstructive sleep apnea) Obesity HTN (hypertension) Left atrial enlargement Persistent atrial fibrillation Surgical History (Updated 02/27/23 @ 15:11 by ÓSCAR Christopher) History of dental surgery Social History Housing: House Alcohol intake: never Patient Tobacco Use Status: Never used Tobacco e-Cigarette/Vaping Use: Never Used Second Hand Smoke Exposure: No service: No Current occupational status: disabled Cognitive needs: Yes (Wheelchair) Hearing needs: No Vision needs: Yes (glasses) Questionnaire Thrive Questionnaire Date Thrive assessed: 02/27/23 AUDIT C Alcohol Use Questionnaire (AUDIT-C) 1. How often do you have a drink containing alcohol?: Never 3. How often do you have six or more drinks on one occasion?: Never Total Score: 0 JUMA-7 AMB Questionnaire JUMA-7 Date JUMA - 7 assessed: 04/26/23 Source: Developed by Drs. Sammy Orozco, Jerri Holman, Lee Ruggiero and colleagues, with an educational allison from [employer]. Review of Systems Const All systems reviewed & are unremarkable except as noted in HPI and below Physical exam (Primary Care) Vital Signs: Last Vital Signs Pulse 88 04/26/23 09:23 BP 144/68 H 04/26/23 09:23 Pulse Ox 97 04/26/23 09:23 Oxygen Delivery Method Room Air 04/26/23 09:23 Tobacco/Smoking Status: Tobacco use Status Tobacco use date assessed 04/26/23 04/26/23 09:33 Patient Tobacco Use Status Never used Tobacco 04/26/23 09:21 e-Cigarette/Vaping Use Never Used 04/26/23 09:21 Thrive Assessment: Date of Thrive Assessment Date Thrive assessed 02/27/23 04/26/23 09:21 Const Other: Constitutional - Awake and Alert, No apparent distress Eyes - PERRL Nose/sinus- no sinus ttp Mouth/throat - no erythema/exudate, no tonsillar edema, uvula midline Cardiovascular - S1S2, RRR, No edema Respiratory - Normal lung expansion, Normal respiratory effort, No respiratory distress, CTA bilaterally Skin - Warm/Dry Results Reviewed Results Reviewed: cbc, bmp, vbg, xr L hip, discharge summary Assessment and Plan Assessment & Plan (1) Obesity hypoventilation syndrome: Code(s): E66.2 - Morbid (severe) obesity with alveolar hypoventilation Plan: Weight loss effort encouraged. Complicating chrnic hypercapneic respiratory failure. Referral to pulmonology placed as requested by retirement staff (2) Chronic hypercapnic respiratory failure: Code(s): J96.12 - Chronic respiratory failure with hypercapnia Plan: . wiht mild respiratory acidosis, resolved with bipap therapy. Continue with cpap nightly, weight loss efforts to help with obesity hypoventilation. Mentation baseline in office today. Referral to pulmonology placed as requested by retirement staff (3) Cognitive impairment: Code(s): R41.89 - Other symptoms and signs involving cognitive functions and awareness Plan: Referral placed to neurology for further management of cognitive impairment and seizure disorder as requested by retirement staff. (4) Sore throat: Code(s): J02.9 - Acute pharyngitis, unspecified Plan: Occurring in mornings and then resolving. Likely related to cpap use. Recommend salt water gargles and hydration. Can also discuss with cpap supplier. Low suspicion for infectious etiology. 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 Given history of prostate cancer, bone scan ordered to evaluate for metastatic lesions. Follow up with urology as scheduled. Orders: Referrals Neurology Referral G47.33 - Obstructive sleep apnea (adult) (pediatric), R41.89 - Other symptoms and signs involving cognitive functions and awareness, R56.9 - Unspecified convulsions Cardiology Referral I48.19 - Other persistent atrial fibrillation, I50.9 - Heart failure, unspecified Pulmonology Referral E66.2 - Morbid (severe) obesity with alveolar hypoventilation, G47.33 - Obstructive sleep apnea (adult) (pediatric), J96.12 - Chronic respiratory failure with hypercapnia Medications: New cholecalciferol (vitamin D3) 25 mcg PO DAILY 30 tabs 2RF dapagliflozin propanediol 10 mg PO QAM 30 tabs 2RF sacubitril-valsartan 24-26 mg (Entresto) 1 tab PO BID 60 tabs 2RF Changed From duloxetine (Cymbalta) 60 mg PO DAILY 30 caps 3RF To duloxetine (Cymbalta) 60 mg PO BID 60 caps 3RF From simethicone (Gas Relief (simethicone)) 80 mg PO TID PRN 90 tabs 2RF abdominal distention To simethicone (Gas Relief (simethicone)) 80 mg PO TIDWMEAL 90 tabs 2RF From acetaminophen (Tylenol) 325 mg PO .Qd PRN 30 tabs 0RF pain To acetaminophen (Tylenol) 650 mg (2 x 325 mg) PO BID-QID PRN 30 tabs 0RF pain Discontinued duloxetine (Cymbalta) Discontinued Reason: Doctor's Order 30 mg PO DAILY 30 caps 3RF acetaminophen ER (Tylenol 8 Hour) Discontinued Reason: Doctor's Order 650 mg PO Q12H 30 tabs 3RF Coding Level of Care Code Est Pt Level 5 (67907) Diagnoses Obesity hypoventilation syndrome E66.2 Chronic hypercapnic respiratory failure J96.12 Cognitive impairment R41.89 Sore throat J02.9 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
[2023-04-26 09:23] VITALS: BP 144/68; PULSE 88; O2SAT 97
== END 2023-04-26 11:25 | disposition home or self-care (01) ==
PROVIDERS: PCP Internal Medicine; Visit Provider Physician Assistant
DX: J96.12 Chronic respiratory failure with hypercapnia (principal); E66.2 Morbid (severe) obesity with alveolar hypoventilation; R41.89 Other symptoms and signs involving cognitive functions and awareness; J02.9 Acute pharyngitis, unspecified; M89.9 Disorder of bone, unspecified
CPT/HCPCS: 99215

== ENCOUNTER 2023-05-02 14:00 | Outpatient (AMB) | payer MEDICARE, MEDICAID, SELFPAY ==
--- NOTE | 2023-05-02 14:05 | A.OFFPC_ITS ---
Vital Signs 05/02/23 14:08 Height 5 ft 11 in BMI Reason not done Patient refused/unable BP 110/82 Blood Pressure Location Lt brachial Position Sitting Pulse 70 Pulse Source Pulse Oximeter Pulse Oximetry (%) 97 Oxygen Delivery Method Room Air Intake Visit Reasons: Ed follow up Intake Note: Patient is here to follow-up after a visit the emergency department at [facility] on 04/16/23. Stage Settings Painter Required: Yes Stage Settings Painter Language: Slovak Dental Laboratory Technician Apprentice: Present Accompanied by: staff Allergies No Known Allergies Allergy (Verified 05/02/23 15:00) Medication List - Last Reconciled 05/02/23 by Joe Segura MD acetaminophen (Tylenol) 650 mg (2 x 325 mg) PO BID-QID PRN amlodipine (Norvasc) 5 mg PO DAILY apixaban 5 mg PO BID atenolol 50 mg (1/2 x 100 mg) PO DAILY atorvastatin 40 mg PO BEDTIME buspirone 10 mg PO BID cetirizine 10 mg PO DAILY cholecalciferol (vitamin D3) 25 mcg PO DAILY dapagliflozin propanediol 10 mg PO QAM dextromethorphan-guaifenesin 5-100 mg/5 mL (Robitussin Cough-Chest Congestion DM) 10 mL PO Q4-8H PRN duloxetine (Cymbalta) 60 mg PO BID furosemide 40 mg (2 x 20 mg) PO DAILY gabapentin 300 mg PO TID levetiracetam ER (Keppra XR) 1,000 mg (2 x 500 mg) PO DAILY loperamide 2 mg PO Q8H PRN 7 days magnesium hydroxide (Milk Of Magnesia Concentrated) 30 mL PO DAILY PRN polyethylene glycol 3350 (Miralax) 17 grams PO DAILY sacubitril-valsartan 24-26 mg (Entresto) 1 tab PO BID sennosides (senna) 17.2 mg (2 x 8.6 mg) PO BEDTIME simethicone (Gas Relief (simethicone)) 80 mg PO TIDWMEAL trazodone 25 mg (1/2 x 50 mg) PO .every 8hr PRN trazodone 50 mg PO BID Tobacco use date assessed: 04/26/23 Fall risk assessment: No Falls in past year Last assessed Fall Risk: 05/02/23 Dental Screening Did you have a dental visit in the last 12 months?: No HPI Ed follow up HPI Details 78-year-old male presents to the office to discuss his medical condition. Information was obtained through a fish and wildlife scientific aid. He comes to the office with an commercial property administrator from the [facility] facility who has some knowledge of his care. She is requesting that patient be given a prescription of loperamide. Patient was recently at [facility] for abdominal discomfort and confusion. Was found to have hypercarbia and treated accordingly. He has now come back to baseline health. He is wheelchair-bound. He has been wheelchair- bound for a year after his debilitating stroke. He is on anticoagulants for atrial fibrillation. Patient uses diapers and can not get himself to the bathroom. He needs full assistance. Today he has no specific complaints. The music assistant reports his diet continues to be poor. [facility] Medical History Chronic hypercapnic respiratory failure Cognitive impairment Seizure Lipoma of arm Abdominal pain History of stroke Prostate cancer BETSY (obstructive sleep apnea) Obesity HTN (hypertension) Left atrial enlargement Persistent atrial fibrillation Surgical History History of dental surgery Social History Housing: House Alcohol intake: never Patient Tobacco Use Status: Never used Tobacco e-Cigarette/Vaping Use: Never Used Second Hand Smoke Exposure: No service: No Current occupational status: disabled Cognitive needs: Yes (Wheelchair) Hearing needs: No Vision needs: Yes (glasses) Questionnaire Thrive Questionnaire Date Thrive assessed: 02/27/23 JUMA-7 AMB Questionnaire JUMA-7 Date JUMA - 7 assessed: 04/26/23 Source: Developed by Drs. Sammy Orozco, Jerri Holman, Lee Ruggiero and colleagues, with an educational allison from [employer]. Physical exam (Primary Care) Vital Signs: Last Vital Signs Pulse 70 05/02/23 14:08 BP 110/82 05/02/23 14:08 Pulse Ox 97 05/02/23 14:08 Oxygen Delivery Method Room Air 05/02/23 14:08 Care Plan Goal for BP management: Blood pressure is in range. Continue current medications. Tobacco/Smoking Status: Tobacco use Status Tobacco use date assessed 04/26/23 05/02/23 14:05 Patient Tobacco Use Status Never used Tobacco 05/02/23 14:05 e-Cigarette/Vaping Use Never Used 05/02/23 14:05 Thrive Assessment: Date of Thrive Assessment Date Thrive assessed 02/27/23 05/02/23 14:05 Const Other: Alert, oriented to time and place. Wheelchair-bound. Patient is speaking to the director of product marketing and answering questions appropriately. HENMT Head: Yes normal to inspection Eyes General: appearance normal, both eyes and all related structures Neck Neck: Yes normal visual inspection and Yes full ROM Chest Chest palpation & inspection: normal inspection of the chest and normal palpation of entire chest wall Resp Other: Baseline wheezing. Effort & Inspection: normal respiratory effort Cardio Jugular venous distension: no JVD GI Other: Pendulous abdomen: Bowel sounds not appreciated. No tenderness. Extrem Other: Thickened and nonpitting edema. Assessment and Plan Assessment & Plan (1) Seizure: Code(s): R56.9 - Unspecified convulsions Plan: Continue current medications. Patient has been seizure-free for a while. (2) Heart failure: Code(s): I50.9 - Heart failure, unspecified Plan: Entresto has been started in the emergency room. Continue the same. (3) Persistent atrial fibrillation: Code(s): I48.19 - Other persistent atrial fibrillation Plan: Continue oral anticoagulants. Coding Level of Care Code Est Pt Level 4 (23719) Diagnoses Seizure R56.9 Heart failure I50.9 Persistent atrial fibrillation I48.19
[2023-05-02 14:08] VITALS: BP 110/82; PULSE 70; O2SAT 97
== END 2023-05-02 14:47 | disposition home or self-care (01) ==
PROVIDERS: PCP Internal Medicine; Visit Provider Internal Medicine
DX: R56.9 Unspecified convulsions (principal); I50.9 Heart failure, unspecified; I48.19 Other persistent atrial fibrillation
CPT/HCPCS: 99214

== ENCOUNTER 2023-05-31 09:28 | Outpatient (AMB) | payer MEDICARE, MEDICAID, SELFPAY ==
--- NOTE | 2023-05-31 09:40 | A.OFFPC_ITS ---
Vital Signs 05/31/23 09:42 Height 5 ft 11 in BMI Reason not done Patient refused/unable BP 132/74 Blood Pressure Location Rt brachial Position Sitting Pulse 78 Pulse Source Pulse Oximeter Pulse Oximetry (%) 94 Oxygen Delivery Method Room Air Intake Visit Reasons: [facility] 05/06/23 Intake Note: Patient is here to follow-up after a visit the emergency department at [facility] on 05/06/23 Reliner Required: Yes Reliner Language: Yakut Information Interpreted: non-clinical & clinical Turn Out: Present Accompanied by: staff Allergies No Known Allergies Allergy (Verified 05/31/23 10:12) Medication List - Last Reconciled 05/31/23 by Joe Segura MD acetaminophen (Tylenol) 650 mg (2 x 325 mg) PO BID-QID PRN amlodipine (Norvasc) 5 mg PO DAILY apixaban 5 mg PO BID atenolol 50 mg (1/2 x 100 mg) PO DAILY atorvastatin 40 mg PO BEDTIME buspirone 10 mg PO BID cetirizine 10 mg PO DAILY cholecalciferol (vitamin D3) 25 mcg PO DAILY dapagliflozin propanediol 10 mg PO QAM dextromethorphan-guaifenesin 5-100 mg/5 mL (Robitussin Cough-Chest Congestion DM) 10 mL PO Q4-8H PRN duloxetine (Cymbalta) 60 mg PO BID furosemide 40 mg (2 x 20 mg) PO DAILY gabapentin 300 mg PO TID levetiracetam ER (Keppra XR) 1,000 mg (2 x 500 mg) PO DAILY loperamide 2 mg PO Q8H PRN 7 days magnesium hydroxide (Milk Of Magnesia Concentrated) 30 mL PO DAILY PRN polyethylene glycol 3350 (Miralax) 17 grams PO DAILY sacubitril-valsartan 24-26 mg (Entresto) 1 tab PO BID sennosides (senna) 17.2 mg (2 x 8.6 mg) PO BEDTIME simethicone (Gas Relief (simethicone)) 80 mg PO TIDWMEAL trazodone 25 mg (1/2 x 50 mg) PO .every 8hr PRN trazodone 50 mg PO BID Tobacco use date assessed: 05/31/23 Dental Screening Dental Screen Date: 02/27/23 HPI [facility] 05/06/23 HPI Details 78-year-old male presents to the office for a follow-up ER visit. Patient was sent to the emergency room after he was complaining of excessive pain in the back and neck. He was seen at [facility] ER. He was discharged back on lidocaine patches. Patient reports he is feeling a little better with the patches and would like a prescription of the same. He is immobilized and on the wheelchair. They use a hoist to lift him to his bed. He feels the discomfort at that point. Incontinent to urine and patient would like to have pull-ups rather than diapers. [facility] Medical History Chronic hypercapnic respiratory failure Cognitive impairment Seizure Lipoma of arm Abdominal pain History of stroke Prostate cancer BETSY (obstructive sleep apnea) Obesity HTN (hypertension) Left atrial enlargement Persistent atrial fibrillation Surgical History History of dental surgery Social History Housing: House Alcohol intake: never Patient Tobacco Use Status: Never used Tobacco e-Cigarette/Vaping Use: Never Used Second Hand Smoke Exposure: No service: No Current occupational status: disabled Cognitive needs: Yes (Wheelchair) Hearing needs: No Vision needs: Yes (glasses) Questionnaire Thrive Questionnaire Date Thrive assessed: 02/27/23 JUMA-7 AMB Questionnaire JUMA-7 Date JUMA - 7 assessed: 04/26/23 Source: Developed by Drs. Sammy Orozco, Jerri Holman, Lee Ruggiero and colleagues, with an educational allison from [employer]. Physical exam (Primary Care) Vital Signs: Last Vital Signs Pulse 78 05/31/23 09:42 BP 132/74 05/31/23 09:42 Pulse Ox 94 05/31/23 09:42 Oxygen Delivery Method Room Air 05/31/23 09:42 Tobacco/Smoking Status: Tobacco use Status Tobacco use date assessed 05/31/23 05/31/23 09:44 Patient Tobacco Use Status Never used Tobacco 05/31/23 09:44 e-Cigarette/Vaping Use Never Used 05/31/23 09:44 Thrive Assessment: Date of Thrive Assessment Date Thrive assessed 02/27/23 05/31/23 09:44 Const General: cooperative and healthy appearing Nutritional Appearance: well nourished Orientation/consciousness: patient oriented x3 Limitations: no limitations HENMT Head: Yes normal to inspection Eyes General: appearance normal, both eyes and all related structures Neck Neck: Yes normal visual inspection Chest Chest palpation & inspection: normal palpation of entire chest wall Resp Effort & Inspection: normal respiratory effort Neuro General: patient oriented x3 Assessment and Plan Assessment & Plan (1) Low back pain: Code(s): M54.50 - Low back pain, unspecified Plan: His symptoms are due to his overweight, his stroke which has left him immobilized, this with the constant use of a device to help him into bed. Lidocaine patches have been prescribed. Patient is not a candidate for pull ups as he can not void without assistance. Continue use of diapers. Coding Level of Care Code Est Pt Level 3 (47384) Diagnoses Low back pain M54.50
[2023-05-31 09:42] VITALS: BP 132/74; PULSE 78; O2SAT 94
== END 2023-05-31 10:06 | disposition home or self-care (01) ==
PROVIDERS: PCP Internal Medicine; Visit Provider Internal Medicine
DX: M54.50 Low back pain, unspecified (principal)
CPT/HCPCS: 99213

== ENCOUNTER 2023-06-21 13:53 | Outpatient (AMB) | payer MEDICARE, MEDICAID, SELFPAY ==
[2023-06-21 13:57] VITALS: BP 128/78; PULSE 85; O2SAT 96
--- NOTE | 2023-06-21 13:57 | A.OFFVIS_ITS ---
Vital Signs 06/21/23 13:57 Height 5 ft 11 in BP 128/78 Blood Pressure Location Rt brachial Position Sitting Pulse 85 Pulse Source Doppler Pulse Oximetry (%) 96 Oxygen Delivery Method Room Air Intake Visit Reasons: Obstructive sleep apnea Allergies No Known Allergies Allergy (Verified 06/21/23 14:00) HPI HPI Obstructive sleep apnea: Details: 78-year-old gentleman with underlying BETSY/ohs on CPAP with recent admission to [facility] for acute hypercapnic respiratory failure requiring BiPAP support, now presents to establish care. Patient is currently on diuretic Lasix 20 mg daily with reasonable control of his underlying lower extremity edema. He denies prior personal family history of lung disease. [facility] Medical History Chronic hypercapnic respiratory failure Cognitive impairment Seizure Lipoma of arm Abdominal pain History of stroke Prostate cancer BETSY (obstructive sleep apnea) Obesity HTN (hypertension) Left atrial enlargement Persistent atrial fibrillation Surgical History History of dental surgery Social History Housing: House Alcohol intake: never Patient Tobacco Use Status: Never used Tobacco e-Cigarette/Vaping Use: Never Used Second Hand Smoke Exposure: No service: No Current occupational status: disabled Cognitive needs: Yes (Wheelchair) Hearing needs: No Vision needs: Yes (glasses) Review of Systems Const Denies daytime sleepiness, Denies excessive sweating, Denies fatigue, Denies fever(s), Denies lethargy, Denies malaise, Denies night sweats, Denies snoring and Denies weight loss Eyes Denies blurry vision and Denies itchy eyes ENT Denies nasal congestion, Denies post nasal drip, Denies sinus pain, Denies sinus pressure and Denies other ( Thrush) Card Denies chest pain, Reports pedal edema, Denies dyspnea, Denies orthopnea and Denies paroxysmal nocturnal dyspnea Resp Denies cough, Denies hemoptysis, Denies excessive phlegm production, Denies dysp nicole, Denies snoring and Denies wheezing GI Denies abdominal pain and Denies heartburn Musc Denies myalgias, Denies arthralgias and Denies joint swelling Skin/Breast Denies rash Psych Denies abnormal sleep pattern and Denies anxiety Endo Denies excessive sweating, Denies fatigue and Denies heat intolerance Silas/Lymph Denies easy bruising Aller/Immun Denies itchy eyes, Denies seasonal rhinorrhea and Denies wheezing Physical Exam Vital Signs: Last Vital Signs Pulse 85 06/21/23 13:57 BP 128/78 06/21/23 13:57 Pulse Ox 96 06/21/23 13:57 Oxygen Delivery Method Room Air 06/21/23 13:57 Const General: no acute distress and alert Nutritional Appearance: not obese Orientation/consciousness: Other orientation findings ( oriented) HEENT Head: Yes atraumatic Eyes General: appearance normal, both eyes and all related structures Sclerae: sclerae normal EOM: EOMs intact bilaterally Neck Neck: Yes supple Lymphatic: no lymphadenopathy noted Resp Effort & Inspection: normal respiratory effort and no use of accessory muscles Auscultation: clear to auscultation bilaterally Cardio Rate: regular rate Rhythm: regular rhythm Heart sounds: no gallops, no murmurs and no rubs Skin General skin exam: other ( warm) Extrem General: No clubbing, No cyanosis and Yes edema (2+ bilateral) Assessment & Plan Assessment & Plan (1) Obesity hypoventilation syndrome: Code(s): E66.2 - Morbid (severe) obesity with alveolar hypoventilation Category: Medical (2) BETSY (obstructive sleep apnea): Code(s): G47.33 - Obstructive sleep apnea (adult) (pediatric) Category: Medical (3) Chronic hypercapnic respiratory failure: Code(s): J96.12 - Chronic respiratory failure with hypercapnia Category: Medical Plan Obstructive sleep apnea with obesity hypoventilation and chronic hypercapnic respiratory failure suboptimally controlled on CPAP. Will likely require [employer] to BiPAP or AVAPS. Will request titration study. Orders: Orders RT PSG in-lab sleep titration Today E66.2 - Morbid (severe) obesity with alveolar hypoventilation, G47.33 - Obstructive sleep apnea (adult) (pediatric), J96.12 - Chronic respiratory failure with hypercapnia Coding Level of Care Code New Pt Level 4 (44652) Diagnoses Obesity hypoventilation syndrome E66.2 BETSY (obstructive sleep apnea) G47.33 Chronic hypercapnic respiratory failure J96.12
== END 2023-06-21 15:06 | disposition home or self-care (01) ==
PROVIDERS: PCP Internal Medicine; Visit Provider Internal Medicine Pulmonary Disease
DX: G47.33 Obstructive sleep apnea (adult) (pediatric) (principal); J96.12 Chronic respiratory failure with hypercapnia
CPT/HCPCS: 99204

== ENCOUNTER → 2023-06-21 13:53 | Outpatient (BNVA) | payer MEDICARE, MEDICAID, SELFPAY | PROVIDERS: PCP Internal Medicine; Visit Provider Internal Medicine Pulmonary Disease | DX: G47.33 Obstructive sleep apnea (adult) (pediatric) (principal); J96.12 Chronic respiratory failure with hypercapnia; R60.0 Localized edema; E66.2 Morbid (severe) obesity with alveolar hypoventilation; Z99.89 Dependence on other enabling machines and devices; Z79.899 Other long term (current) drug therapy | CPT/HCPCS: 99202 ==

== ENCOUNTER 2023-06-28 14:40 | Outpatient (AMB) | payer MEDICARE, MEDICAID, SELFPAY ==
--- NOTE | 2023-06-28 14:46 | A.OFFPC_ITS ---
Vital Signs 06/28/23 14:48 Height 5 ft 11 in BP 120/66 Blood Pressure Location Rt brachial Position Sitting Pulse 32 L Pulse Source Pulse Oximeter Pulse Oximetry (%) 92 Oxygen Delivery Method Room Air Intake Visit Reasons: ED follow up chest pain Intake Note: Patient is here to follow-up after a visit the emergency department at [facility] on 06/26/23 Carpenters Required: Yes Carpenters Language: Turkish Information Interpreted: non-clinical & clinical Sprayer Leather: Present Accompanied by: staff Allergies No Known Allergies Allergy (Verified 07/02/23 15:32) Tobacco use date assessed: 06/28/23 Fall risk assessment: No Falls in past year Last assessed Fall Risk: 06/28/23 Dental Screening Dental Screen Date: 02/27/23 HPI ED follow up chest pain HPI Details 78 year old male presents to the office after recent discharge from the ER. Pt was in [facility] ER after he complained difficulty of swallowing. Pt was evaluated and reassured. Sx resolved and is now able to swallow and eat without difficulty. He is disabled and wheelchair bound. He needs assistance with feeding and all ADL's FORMERLY [facility], [facility] Medical History Chronic hypercapnic respiratory failure Cognitive impairment Seizure Lipoma of arm Abdominal pain History of stroke Prostate cancer BETSY (obstructive sleep apnea) Obesity HTN (hypertension) Left atrial enlargement Persistent atrial fibrillation Surgical History History of dental surgery Social History Housing: House Alcohol intake: never Patient Tobacco Use Status: Never used Tobacco e-Cigarette/Vaping Use: Never Used Second Hand Smoke Exposure: No service: No Current occupational status: disabled Cognitive needs: Yes (Wheelchair) Hearing needs: No Vision needs: Yes (glasses) Questionnaire Thrive Questionnaire Date Thrive assessed: 02/27/23 JUMA-7 AMB Questionnaire JUMA-7 Date JUMA - 7 assessed: 04/26/23 Source: Developed by Drs. Sammy Orozco, Jerri Holman, Lee Ruggiero and colleagues, with an educational allison from [employer]. Physical exam (Primary Care) Vital Signs: Last Vital Signs Pulse 32 L 06/28/23 14:48 BP 120/66 06/28/23 14:48 Pulse Ox 92 06/28/23 14:48 Oxygen Delivery Method Room Air 06/28/23 14:48 Tobacco/Smoking Status: Tobacco use Status Tobacco use date assessed 06/28/23 06/28/23 14:52 Patient Tobacco Use Status Never used Tobacco 06/28/23 14:52 e-Cigarette/Vaping Use Never Used 06/28/23 14:52 Thrive Assessment: Date of Thrive Assessment Date Thrive assessed 02/27/23 06/28/23 14:52 Const General: cooperative and healthy appearing Nutritional Appearance: well nourished Orientation/consciousness: patient oriented x3 Limitations: no limitations HENMT Head: Yes normal to inspection Eyes General: appearance normal, both eyes and all related structures Neck Neck: Yes normal visual inspection Chest Chest palpation & inspection: normal palpation of entire chest wall Resp Effort & Inspection: normal respiratory effort Neuro General: patient oriented x3 Assessment and Plan Assessment & Plan (1) Dysphagia: Code(s): R13.10 - Dysphagia, unspecified Plan Condition has resolved. He is back at baseline state of health. ER visit revd. Coding Level of Care Code Est Pt Level 3 (63389) Diagnoses Dysphagia R13.10
[2023-06-28 14:48] VITALS: BP 120/66; PULSE 32; O2SAT 92
== END 2023-06-28 17:19 | disposition home or self-care (01) ==
PROVIDERS: PCP Internal Medicine; Visit Provider Internal Medicine
DX: R13.10 Dysphagia, unspecified (principal)
CPT/HCPCS: 99213

== ENCOUNTER 2023-08-02 14:31 | Outpatient (AMB) | payer MEDICARE, MEDICAID, SELFPAY ==
[2023-08-02 14:33] VITALS: BP 120/80; PULSE 97; O2SAT 94
--- NOTE | 2023-08-02 14:33 | A.OFFVIS_ITS ---
Vital Signs 08/02/23 14:33 Height 5 ft 11 in BP 120/80 Blood Pressure Location Rt brachial Position Sitting Pulse 97 Pulse Source Doppler Pulse Oximetry (%) 94 Oxygen Delivery Method Room Air Intake Visit Reasons: Obstructive sleep apnea Allergies No Known Allergies Allergy (Verified 08/02/23 14:42) HPI HPI Obstructive sleep apnea: Details: 78-year-old gentleman with underlying BETSY/ohs on CPAP with recent admission to [facility] for acute hypercapnic respiratory failure requiring BiPAP support, now presents to [facility] care. Patient is currently on diuretic Lasix 20 mg daily with reasonable control of his underlying lower extremity edema. He denies prior personal family history of lung disease. After the last office visit patient had a repeat in-lab study that showed no evidence of underlying obstructive sleep apnea or nocturnal hypoxia. [facility] Medical History Chronic hypercapnic respiratory failure Cognitive impairment Seizure Lipoma of arm Abdominal pain History of stroke Prostate cancer BETSY (obstructive sleep apnea) Obesity HTN (hypertension) Left atrial enlargement Persistent atrial fibrillation Surgical History History of dental surgery Social History Housing: House Alcohol intake: never Patient Tobacco Use Status: Never used Tobacco e-Cigarette/Vaping Use: Never Used Second Hand Smoke Exposure: No service: No Current occupational status: disabled Cognitive needs: Yes (Wheelchair) Hearing needs: No Vision needs: Yes (glasses) Physical Exam Vital Signs: Last Vital Signs Pulse 97 08/02/23 14:33 BP 120/80 08/02/23 14:33 Pulse Ox 94 08/02/23 14:33 Oxygen Delivery Method Room Air 08/02/23 14:33 Const General: no acute distress, alert and awake Eyes Sclerae: sclerae normal EOM: EOMs intact bilaterally Neck Neck: Yes no lymphadenopathy, Yes trachea midline and Yes supple Resp Effort & Inspection: normal respiratory effort and no respiratory distress Auscultation: clear to auscultation bilaterally Cardio Rate: regular rate Rhythm: regular rhythm Heart sounds: no gallops, no murmurs and no rubs GI Palpation (GI): Soft to palpation and Other GI palpation findings present ( Nontender) Auscultation: normal bowel sounds Extrem General: Yes no pedal edema, No clubbing and No cyanosis Assessment & Plan Assessment & Plan (1) BETSY (obstructive sleep apnea): Code(s): G47.33 - Obstructive sleep apnea (adult) (pediatric) Category: Medical Plan: Results of sleep study reviewed, no evidence of underlying obstructive sleep apnea or nocturnal hypoxia. Will discontinue CPAP at this time. Coding Level of Care Code Est Pt Level 3 (83128) Diagnoses BETSY (obstructive sleep apnea) G47.33
== END 2023-08-02 14:55 | disposition home or self-care (01) ==
PROVIDERS: PCP Internal Medicine; Visit Provider Internal Medicine Pulmonary Disease
DX: G47.33 Obstructive sleep apnea (adult) (pediatric) (principal)
CPT/HCPCS: 99213

== ENCOUNTER → 2023-08-02 14:31 | Outpatient (BNVA) | payer MEDICARE, MEDICAID, SELFPAY | PROVIDERS: PCP Internal Medicine; Visit Provider Internal Medicine Pulmonary Disease | DX: J96.12 Chronic respiratory failure with hypercapnia (principal); G47.33 Obstructive sleep apnea (adult) (pediatric); Z80.1 Family history of malignant neoplasm of trachea, bronchus and lung; Z99.89 Dependence on other enabling machines and devices | CPT/HCPCS: 99212 ==

== ENCOUNTER 2023-08-03 10:22 | Outpatient (AMB) | payer MEDICARE, MEDICAID, SELFPAY ==
--- NOTE | 2023-08-03 11:01 | A.OFFPC_ITS ---
Vital Signs 08/03/23 11:03 Height 5 ft 11 in BP 122/66 Blood Pressure Location Rt brachial Position Sitting Pulse 84 Pulse Source Pulse Oximeter Pulse Oximetry (%) 96 Oxygen Delivery Method Room Air Intake Visit Reasons: 3 Month F/U Intake Note: Patient is here to follow up on HLD, PAFib, BETSY, HTN. 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 Operator Required: Yes 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 Operator Language: Lithuanian Information Interpreted: non-clinical & clinical [employer] Manager: Present Accompanied by: staff Allergies No Known Allergies Allergy (Verified 08/03/23 13:15) Medication List - Last Reconciled 08/03/23 by Joe Segura MD acetaminophen (Tylenol) 650 mg (2 x 325 mg) PO BID-QID PRN amlodipine (Norvasc) 5 mg PO DAILY apixaban 5 mg PO BID atenolol 50 mg (1/2 x 100 mg) PO DAILY atorvastatin 40 mg PO BEDTIME buspirone 10 mg PO BID cetirizine 10 mg PO DAILY cholecalciferol (vitamin D3) 25 mcg PO DAILY dapagliflozin propanediol 10 mg PO QAM dextromethorphan-guaifenesin 5-100 mg/5 mL (Robitussin Cough-Chest Congestion DM) 10 mL PO Q4-8H PRN duloxetine (Cymbalta) 60 mg PO BID furosemide 40 mg (2 x 20 mg) PO DAILY gabapentin 300 mg PO TID levetiracetam ER (Keppra XR) 1,000 mg (2 x 500 mg) PO DAILY lidocaine 4% (Aspercreme (lidocaine)) 1 patch topical BID PRN loperamide 2 mg PO Q8H PRN 7 days magnesium hydroxide (Milk Of Magnesia Concentrated) 30 mL PO DAILY PRN pantoprazole 40 mg PO DAILY polyethylene glycol 3350 (Miralax) 17 grams PO DAILY sacubitril-valsartan 24-26 mg (Entresto) 1 tab PO BID sennosides (senna) 17.2 mg (2 x 8.6 mg) PO BEDTIME simethicone (Gas Relief (simethicone)) 80 mg PO TIDWMEAL trazodone 25 mg (1/2 x 50 mg) PO .every 8hr PRN trazodone 50 mg PO BID Tobacco use date assessed: 08/03/23 Fall risk assessment: No Falls in past year Last assessed Fall Risk: 08/03/23 Dental Screening Dental Screen Date: 02/27/23 HPI 3 Month F/U HPI Details 78-year-old male presents to the office. He was seen last week. Patient is coming from a skilled nursing. He has no new complaints. The CPAP machine patient was using has been discontinued. He was seen by the family centered specialist yesterday and told he does not have sleep apnea. [facility] Medical History (Updated 08/02/23 @ 14:55 by Julito Booker MD) Chronic hypercapnic respiratory failure Cognitive impairment Seizure Lipoma of arm Abdominal pain History of stroke Prostate cancer BETSY (obstructive sleep apnea) Obesity HTN (hypertension) Left atrial enlargement Persistent atrial fibrillation Surgical History History of dental surgery Social History Housing: House Alcohol intake: never Patient Tobacco Use Status: Never used Tobacco e-Cigarette/Vaping Use: Never Used Second Hand Smoke Exposure: No service: No Current occupational status: disabled Cognitive needs: Yes (Wheelchair) Hearing needs: No Vision needs: Yes (glasses) Questionnaire Thrive Questionnaire Date Thrive assessed: 02/27/23 JUMA-7 AMB Questionnaire JUMA-7 Date JUMA - 7 assessed: 04/26/23 Source: Developed by Drs. Sammy Orozco, eJrri Holman, Lee Ruggiero and colleagues, with an educational allison from [employer]. Physical exam (Primary Care) Vital Signs: Last Vital Signs Pulse 84 08/03/23 11:03 BP 122/66 08/03/23 11:03 Pulse Ox 96 08/03/23 11:03 Oxygen Delivery Method Room Air 08/03/23 11:03 Tobacco/Smoking Status: Tobacco use Status Tobacco use date assessed 08/03/23 08/03/23 11:19 Patient Tobacco Use Status Never used Tobacco 08/03/23 11:01 e-Cigarette/Vaping Use Never Used 08/03/23 11:01 Thrive Assessment: Date of Thrive Assessment Date Thrive assessed 02/27/23 08/03/23 11:01 Const General: cooperative and healthy appearing Nutritional Appearance: well nourished Limitations: no limitations HENMT Head: Yes normal to inspection Eyes General: appearance normal, both eyes and all related structures Neck Neck: Yes normal visual inspection Chest Chest palpation & inspection: normal palpation of entire chest wall Resp Effort & Inspection: normal respiratory effort Assessment and Plan Assessment & Plan (1) BETSY (obstructive sleep apnea): Code(s): G47.33 - Obstructive sleep apnea (adult) (pediatric) Plan: Pulmonology note reviewed. Coding Level of Care Code Est Pt Level 3 (49135) Diagnoses BETSY (obstructive sleep apnea) G47.33
[2023-08-03 11:03] VITALS: BP 122/66; PULSE 84; O2SAT 96
== END 2023-08-03 12:41 | disposition home or self-care (01) ==
PROVIDERS: PCP Internal Medicine; Visit Provider Internal Medicine
DX: G47.33 Obstructive sleep apnea (adult) (pediatric) (principal)
CPT/HCPCS: 99213

== ENCOUNTER → 2023-09-28 23:59 | Outpatient (BNV) | payer MEDICARE, MEDICAID, SELFPAY | PROVIDERS: PCP Internal Medicine; Visit Provider Internal Medicine | DX: J96.02 Acute respiratory failure with hypercapnia (principal); U07.1 COVID-19; F41.9 Anxiety disorder, unspecified | CPT/HCPCS: G0179 ==

== ENCOUNTER → 2023-10-04 23:59 | Outpatient (BNV) | payer MEDICARE, MEDICAID, SELFPAY | PROVIDERS: PCP Internal Medicine; Visit Provider Internal Medicine | DX: J96.02 Acute respiratory failure with hypercapnia (principal); I50.9 Heart failure, unspecified | CPT/HCPCS: G0180 ==